=== PATIENT | female | born 1985 | race Two or more races ===

== ENCOUNTER 2021-03-29 12:00 | Inpatient (IN) | payer OTHER ==
[~2021-03-29] VITALS: Ht 177.8 cm; Wt 222.0 kg
[2021-03-31] MEDS ORDERED: ZOLPIDEM TARTRA10 MG (14:56)
[2021-03-31] MEDS ORDERED: BUPROPION XL150 MG (14:56)
== END 2021-04-03 13:33 | disposition home or self-care (01) | DRG 743 ==
LOC: OB/GYN 03-31 07:00 → O/R 03-31 10:28 → OB/GYN 03-31 12:00 → SURH 03-31 22:25
PROVIDERS: ADMIT Specialist; ATTEND Specialist
PROC: 0UB90ZZ Excision of Uterus, Open Approach (ICD-10-PCS; principal; 2021-03-31 07:00)
DX: D25.1 Intramural leiomyoma of uterus (principal); D25.2 Subserosal leiomyoma of uterus